=== PATIENT | male | born 1955 | race Caucasian/White ===

== ENCOUNTER → 2023-07-24 06:31 | Day surgery (SDC) | payer BC, SELFPAY | LOC: GI 06:31 | PROVIDERS: ATTENDING PHYSICIAN Internal Medicine | DX: D50.9 Iron deficiency anemia, unspecified (principal); K44.9 Diaphragmatic hernia without obstruction or gangrene; K29.50 Unspecified chronic gastritis without bleeding | CPT/HCPCS: 45378; 43239; 88305; 88342 ==

== ENCOUNTER → 2025-02-09 09:32 | Outpatient (REF) | payer OTHER, SELFPAY | LOC: REG 09:32 | PROVIDERS: ATTENDING PHYSICIAN Family Medicine | DX: Z00.8 Encounter for other general examination (principal) | CPT/HCPCS: 93005 ==